=== PATIENT | female | born 1995 | race Hispanic/Latino ===

== ENCOUNTER 2023-10-11 17:38 | Day surgery (SDC) | payer MEDICAID ==
[2023-10-11] MEDS ORDERED: hydrALAZINE 20 MG/ML VIAL SLOW IVP PRN (17:57)
[2023-10-11 18:11] VITALS: BMI 38.7
[2023-10-11 18:38] LABS: #Eosinphils 0.1 10x3/uL (0.0-0.5); #Monocytes 0.8 10x3/uL (0.0-1.1); #Neutrophils 7.4 10x3/uL (1.5-8.4); %Basophils 0.4 % (0.0-2.0); %Lymphocytes 17.5 % (18.0-47.0); %Neutrophils 72.6 % (40.0-75.0); Hematocrit 34.4 % (34.9-44.5); Hemoglobin 11.3 g/dL (12.0-15.5); Mean Corpuscular HGB CONC 32.8 g/dL (32.0-36.0); Mean Corpuscular Hemoglobin 25.4 pg (27.0-33.0); Mean Corpuscular Volume 77.3 fl (81.6-98.3); Mean Platelet Volume 11.9 fl (7.4-10.4); Platelet Count 230 10x3/uL (150-450); RBC Distribution Width 13.2 % (11.5-14.5); Red Blood Cell (RBC) Count 4.45 10x6/uL (3.90-5.03); White Blood Cell (WBC) Count 10.1 10x3/uL (3.5-10.5)
[2023-10-11 18:52] LABS: ALT (SGPT) 123 U/L (8-55); AST (SGOT) 73 U/L (5-34); Albumin 3.2 g/dL (3.5-5.0); Alkaline Phosphatase 229 U/L (40-110); Anion Gap 12 mmol/L (10-20); BUN (Urea Nitrogen) 9 mg/dL (7.0-18.7); Calc. Creatinine Clearance 183 mL/min (70-130); Calcium 9.1 mg/dL (7.8-10.44); Carbon Dioxide 23 mmol/L (22-29); Chloride 104 mmol/L (98-107); Estimated GFR 121; Globulin 4.1 g/dL (2.4-3.5); Glucose 62 mg/dL (70-105); Potassium 4.1 mmol/L (3.5-5.1); Protein, Total 7.3 g/dL (6.0-8.3); Sodium 135 mmol/L (136-145)
[2023-10-11 18:53] LABS: ALT (SGPT) 126 U/L (8-55); AST (SGOT) 73 U/L (5-34); Albumin 3.3 g/dL (3.5-5.0); Alkaline Phosphatase 234 U/L (40-110); Bilirubin, Direct 0.6 mg/dL (0.1-0.3); Protein, Total 7.5 g/dL (6.0-8.3)
== END 2023-10-11 20:00 | disposition home or self-care (01) ==
LOC: CSHLD/OP 17:38
PROVIDERS: ATTEND Obstetrics & Gynecology
DX: O99.891 Other specified diseases and conditions complicating pregnancy (principal); R03.0 Elevated blood-pressure reading, without diagnosis of hypertension; O26.613 Liver and biliary tract disorders in pregnancy, third trimester; R94.5 Abnormal results of liver function studies; O34.211 Maternal care for low transverse scar from previous cesarean delivery; Z79.899 Other long term (current) drug therapy; Z3A.33 33 weeks gestation of pregnancy
CPT/HCPCS: 36415; 76705; 80053; 82239; 82570; 84156; 85025; 99283